=== PATIENT | male | born 1940 | race Caucasian/White ===

== ENCOUNTER → 2021-11-09 | Outpatient (CLI) | payer MEDICARE | LOC: M ONCR 13:45 → EDBD 14:00 | PROVIDERS: ATTEND General Practice | DX: C79.51 Secondary malignant neoplasm of bone (principal); C61 Malignant neoplasm of prostate; Z87.891 Personal history of nicotine dependence ==

== ENCOUNTER → 2021-11-25 | Outpatient (CLI) | payer MEDICARE ==
[2021-11-25] MEDS: XOFIGO(RADIUM-223 DICHLORIDE) 180UCI 6ML VL (1,100KBQ/ML) (30UCI/ML) IV ONE (09:00)
== END ==
LOC: M ONCR 13:14
PROVIDERS: ATTEND General Practice
DX: C61 Malignant neoplasm of prostate (principal); C79.51 Secondary malignant neoplasm of bone
CPT/HCPCS: 77300; 79101; A9606

== ENCOUNTER → 2021-12-23 | Outpatient (CLI) | payer MEDICARE ==
[2021-12-23] MEDS: XOFIGO(RADIUM-223 DICHLORIDE) 180UCI 6ML VL (1,100KBQ/ML) (30UCI/ML) IV ONE (09:00)
== END ==
LOC: M ONCR 13:13
PROVIDERS: ATTEND General Practice
DX: C61 Malignant neoplasm of prostate (principal); C79.51 Secondary malignant neoplasm of bone
CPT/HCPCS: 79101; A9606; G0463

== ENCOUNTER → 2022-01-20 | Outpatient (CLI) | payer MEDICARE ==
[~2022-01-20] VITALS: Ht 175.3 cm; Wt 88.9 kg
[2022-01-20] MEDS: XOFIGO(RADIUM-223 DICHLORIDE) 180UCI 6ML VL (1,100KBQ/ML) (30UCI/ML) IV ONE ×2 (14:05→15:04)
== END ==
LOC: M ONCR 13:52
PROVIDERS: ATTEND General Practice
DX: C61 Malignant neoplasm of prostate (principal); Z79.51 Long term (current) use of inhaled steroids
CPT/HCPCS: 79101; A9606; G0463

== ENCOUNTER → 2022-02-17 | Outpatient (CLI) | payer MEDICARE ==
[~2022-02-17] MED LIST: XOFIGO(RADIUM-223 DICHLORIDE) 180UCI 6ML VL (1,100KBQ/ML) (30UCI/ML) IV STA
== END ==
LOC: M ONCR 14:55
PROVIDERS: ATTEND General Practice
DX: C61 Malignant neoplasm of prostate (principal); C79.51 Secondary malignant neoplasm of bone; R53.0 Neoplastic (malignant) related fatigue; R63.0 Anorexia; Z79.899 Other long term (current) drug therapy
CPT/HCPCS: 77790; 79101; A9606; G0463

== ENCOUNTER → 2022-03-17 | Outpatient (CLI) | payer MEDICARE | LOC: M ONCR 13:36 | PROVIDERS: ATTEND General Practice | DX: C61 Malignant neoplasm of prostate (principal); C79.51 Secondary malignant neoplasm of bone; Z79.818 Long term (current) use of other agents affecting estrogen receptors and estrogen levels; R53.83 Other fatigue | CPT/HCPCS: 79101; A9606; G0463 ==